=== PATIENT | female | born 1975 | race Caucasian/White ===

== ENCOUNTER 2017-01-31 18:00 | Inpatient (IN) | payer OTHER ==
--- NOTE | 2017-01-31 18:34 | PDOC ---
History of Present Illness - General Chief Complaint: Pain Stated Complaint: ABDOMINAL PAIN Time Seen by Provider: 01/31/17 18:34 - History of Present Illness Initial Comments: 41 year old female with PMH of GERD and history of tubal ligation presenting with nausea, vomiting, and diffuse abdominal and bilateral lower back pain for the past 5 hours. She denies any previous history of abdominal pain like this. The vomit was dark brown, non-bloody and did not look like coffee grounds. Has not had any urinary symptoms. Denies fevers, chills, chest pain, palpitations, or any other sick symptoms. 01/31/17 19:16 Past History - Past Medical History Allergies/Adverse Reactions: Allergies Allergy/AdvReac Type Severity Reaction Status Date / Time No Known Allergies Allergy Verified 01/31/17 18:22 Home Medications: Ambulatory Orders Docusate Sodium [Colace -] 100 mg PO TID #90 capsule 02/01/17 Oxycodone HCl/Acetaminophen [Percocet 5-325 mg Tablet] 1 - 2 tab PO Q6H #28 tab MDD 4 02/01/17 Thyroid Disease: No - Suicide/Smoking/Psychosocial Hx Smoking History: Never smoked Have you smoked in the past 12 months: No Information on smoking cessation initiated: No Hx Alcohol Use: No Drug/Substance Use Hx: No Substance Use Type: None Review of Systems - Review of Systems Constitutional: No: Chills, Diaphoresis, Fever Respiratory: No: Cough, Shortness of Breath, Wheezing Cardiac (ROS): Yes: Chest Pain. No: Edema, Lightheadedness *Physical Exam - Vital Signs Last Vital Signs Temp Pulse Resp BP Pulse Ox 98.6 F 75 18 130/74 100 01/31/17 18:00 01/31/17 18:00 01/31/17 18:00 01/31/17 18:00 01/31/17 18:00 - Physical Exam General Appearance: Yes: Nourished, Appropriately Dressed. No: Apparent Distress HEENT: positive: EOMI, MANJEET, Normal ENT Inspection Neck: positive: Trachea midline, Normal Thyroid, Supple. negative: Tender, Rigid Respiratory/Chest: positive: Lungs Clear, Normal Breath Sounds. negative: Chest Tender, Respiratory Distress Cardiovascular: positive: Regular Rhythm, Regular Rate. negative: S1, S2, Edema , Murmur Gastrointestinal/Abdominal: positive: Normal Bowel Sounds, Tender (Originally tender diffusely in abdomen but localized to lower abdomen/ suprapubic area after two hours.), Flat, Soft Musculoskeletal: positive: Normal Inspection Extremity: positive: Normal Inspection, Normal Range of Motion Integumentary: positive: Normal Color, Dry, Warm Neurologic: positive: Fully Oriented, Alert, Normal Mood/Affect ED Treatment Course - LABORATORY CBC & Chemistry Diagram: 01/31/17 19:51 01/31/17 19:51 Medical Decision Making - Medical Decision Making 41 year old female who presents with abdominal pain, nausea, and vomiting. Pain was eventually localized to suprapubic region although UA negative. Will get CT abdomen with PO contrast because of elevated WBC with left shift. Signed out to Dr. Nicholas in stable condition. 01/31/17 22:57 *DC/Admit/Observation/Transfer Diagnosis at time of Disposition: Abdominal pain - Discharge Dispostion Condition at time of disposition: Stable - Prescriptions
[2017-01-31 20:11] LABS: BASOPHIL 0.2 % (0-2.0); MCH 32.4 pg (25.7-33.7); MCHC 33.4 g/dl (32.0-36.0); MEAN CELL VOLUME 96.8 fl (80-96); MEAN PLT VOLUME 8.7 fl (7.5-11.1); NEUTROPHILS 90.4 % (42.8-82.8); PLATELET COUNT 258 K/MM3 (134-434); RDW 12.7 % (11.6-15.6); WHITE BLOOD COUNT 17.7 K/mm3 (4.0-10.0)
[2017-01-31 20:21] LABS: URINE APPEARANCE SLCLOUDY; URINE BILIRUBIN NEGATIVE (NEGATIVE); URINE BLOOD NEGATIVE (NEGATIVE); URINE COLOR LTYELLOW; URINE GLUCOSE (UA) NEGATIVE (NEGATIVE); URINE KETONE 1+ (NEGATIVE); URINE LEUK ESTERASE NEGATIVE (NEGATIVE); URINE NITRITE NEGATIVE (NEGATIVE); URINE PROTEIN NEGATIVE (NEGATIVE); URINE UROBILINOGEN NEGATIVE mg/dL (0.2-1.0)
[2017-01-31 20:38] LABS: ANION GAP 6 (8-16); CALCIUM 9.2 mg/dL (8.5-10.1); CO2 25 mmol/L (21-32); CREATININE 0.7 mg/dL (0.55-1.02); GLUCOSE,RANDOM 129 mg/dL (74-106); MAGNESIUM 1.6 mg/dL (1.8-2.4); PHOSPHOROUS 1.6 mg/dL (2.5-4.9); SGOT/AST 14 U/L (15-37); SGPT/ALT 22 U/L (12-78)
[2017-01-31 20:40] LABS: ALK PHOS 79 U/L (45-117); BILIRUBIN,TOTAL 0.3 mg/dL (0.2-1.0); TOT PROT 7.4 g/dl (6.4-8.2)
[2017-01-31] MEDS ORDERED: MAGNESIUM SULF 50% (8.12 MEQ/2 ML-1 GM VIAL) IVPB ONE (22:36)
[2017-01-31] MEDS ORDERED: MAGNESIUM SULF 50% (8.12 MEQ/2 ML-1 GM VIAL) ONE (22:48)
--- NOTE | 2017-02-01 01:00 | PDOC ---
Attending Attestation - Resident Resident Name: Mark Cortes - HPI HPI: 02/01/17 00:58 41-year-old female with history of GERD presents to the ER with atraumatic lower abdominal pain and anorexia. - Physicial Exam PE: 02/01/17 00:58 Patient is awake and alert, nontoxic-appearing, afebrile cta rrr Abdomen: Soft, nondistended, mild to moderate suprapubic and left lower quadrant tenderness to deep palpation; no guarding or rebound; no CVA tenderness ; - Medical Decision Making 02/01/17 00:59 41-year-old female with history of GERD presents to the ER with atraumatic lower abdominal pain. Pain is localized to the suprapubic and left lower quadrant areas. CBC reveals significant leukocytosis of 17 with predominance of neutrophils. CMP is within normal limit. Urinalysis unremarkable. Will obtain CT of abdomen and pelvis with by mouth contrast to rule out diverticulitis. Will reassess. 02/01/17 02:35 Patient with persistent periumbilical and right lower quadrant pain. Leukocytosis of 17. CT that and pelvis showing a dilated appendix of 8 mm. I suspect early appendicitis. Will administer IV Zosyn, we'll keep nothing by mouth, will hydrate, we'll consult surgery.
[2017-02-01] MEDS ORDERED: PIPERACILLIN/TAZOB 3.375 GM/50 ML PRE-DOCKED IV ONE (02:36)
[2017-02-01] MEDS ORDERED: DEXTROSE 5%-0.45% SALINE 1,000 ML IV SCH (02:45)
[2017-02-01] MEDS ORDERED: PIPERACILLIN/TAZOB 3.375 GM 50 ML IVPB ONE (03:14)
--- NOTE | 2017-02-01 05:47 | PDOC ---
*Physical Exam - Vital Signs Last Vital Signs Temp Pulse Resp BP Pulse Ox 98.6 F 75 18 130/74 100 01/31/17 18:00 01/31/17 18:00 01/31/17 18:00 01/31/17 18:00 01/31/17 18:00 ED Treatment Course - LABORATORY CBC & Chemistry Diagram: 01/31/17 19:51 01/31/17 19:51 - ADDITIONAL ORDERS Additional order review: Laboratory Results 01/31/17 01/31/17 01/31/17 20:06 19:52 19:51 Sodium 136 Potassium 4.0 Chloride 105 Carbon Dioxide 25 Anion Gap 6 L BUN 8 Creatinine 0.7 Creat Clearance w eGFR > 60 Random Glucose 129 H Calcium 9.2 Phosphorus 1.6 L Magnesium 1.6 L Total Bilirubin 0.3 AST 14 L ALT 22 Alkaline Phosphatase 79 Total Protein 7.4 Albumin 4.0 Lipase 100 Serum , Qual Negative Urine Color Ltyellow Urine Appearance Slcloudy Urine pH 6.0 Ur Specific [place] 1.020 Urine Protein Negative Urine Glucose (UA) Negative Urine Ketones 1+ H Urine Blood Negative Urine Nitrite Negative Urine Bilirubin Negative Urine Urobilinogen Negative 01/31/17 19:51 RBC 4.16 MCV 96.8 H MCHC 33.4 RDW 12.7 MPV 8.7 Neutrophils % 90.4 H Lymphocytes % 5.3 L Monocytes % 4.1 Eosinophils % 0.0 Basophils % 0.2 - Medications Given in the ED: ED Medications Discontinued Medications Generic Name Dose Route Start Last Admin Trade Name Freq PRN Reason Stop Dose Admin Magnesium Sulfate 2 gm 01/31/17 22:36 01/31/17 22:54 Magnesium Sulfate IVPB 01/31/17 22:37 2 gm ONCE ONE Administration Piperacillin Sod/Tazobactam Sod 3.375 gm 02/01/17 02:36 02/01/17 03:26 Zosyn 3.375gm Ivpb (Pre-Docked) IV 02/01/17 02:37 3.375 gm ONCE ONE Administration Protocol *DC/Admit/Observation/Transfer Diagnosis at time of Disposition: Abdominal pain - Discharge Dispostion Condition at time of disposition: Stable Admit: Yes
[2017-02-01] MEDS ORDERED: ONDANSETRON 4 MG/2 ML VIAL IVPUSH STA (05:56)
[2017-02-01] MEDS ORDERED: morphine CARPU-JECT 2 MG/1 ML DISP.SYRIN IVPUSH ONE (05:56)
[2017-02-01] MEDS ORDERED: morphine CARPU-JECT 4 MG/1 ML DISP.SYRIN ONE (06:14)
[2017-02-01] MEDS ORDERED: ONDANSETRON 4 MG/2 ML VIAL ONE (06:15)
[2017-02-01] MEDS ORDERED: morphine CARPU-JECT 2 MG/1 ML DISP.SYRIN IVPUSH PRN (06:54)
[2017-02-01 08:13] VITALS: BMI 29.9
--- NOTE | 2017-02-01 08:22 | HP ---
CHIEF COMPLAINT: Abdominal pain x1 PCP: Surgeon: Dr Santiago HISTORY OF PRESENT ILLNESS: The patient is a 41 year old female with no significant past medical history that presented yesterday with a one day history of lower abdominal pain. Patient was in her usual state of health until 2pm yesterday after a meal when she had a sharp lower abdominal pain. The pain was 10/10 located in the right lower quadrant and suprapubic area. The pain did not radiate. It was worsened by standing up and relieved by morphine which she received after she arrived 3 hours later in the ED. There was associated nausea with vomiting x1 of yellowish substance, no hematemesis. Patient had one bowel movement prior to the onset of the pain which was well formed stool, non bloody. No previous surgical history. No anorexia, no abdominal swelling, no hx of jaundice, or recent travel. No contact with someone with similar symptoms.There was no prior history of fever or chills. No dysuria, no increased in urinary frequency, no diarrhea or constipation. No headaches. While at the ED she received morphine and the pain is now at 6/10 in the R lower quadrant that she describes nore as a fullness. She is NPO and is scheduled to be reviewed by the Surgeon for appendectomy. ER course was notable for: (1)CTA -Showed a dilated appendix of 8mm (2)Leucocytosis-17.7 (3)UA -ketones 4) CXR- 5) EKG-Sinus tachycardia, non specific T wave abnormality 6) Zosyn ^) D5/and 1/2Nsaline, morphine, zofran Recent Travel: PAST MEDICAL HISTORY: None noted PAST SURGICAL HISTORY: None noted Social History: Smoking: Alcohol: Drugs: Family History: Lives with and 2 kids Allergies No Known Allergies Allergy (Verified 01/31/17 18:22) HOME MEDICATIONS: Home Medications Medication Instructions Recorded NK [No Known Home Medication] 01/31/17 REVIEW OF SYSTEMS CONSTITUTIONAL: Absent: fever, chills, diaphoresis, generalized weakness, malaise, loss of appetite, weight change HEENT: Absent: rhinorrhea, nasal congestion, throat pain, throat swelling, difficulty swallowing, mouth swelling, ear pain, eye pain, visual changes CARDIOVASCULAR: Absent: chest pain, syncope, palpitations, irregular heart rate, lightheadedness , peripheral edema RESPIRATORY: Absent: cough, shortness of breath, dyspnea with exertion, orthopnea, wheezing, stridor, hemoptysis GASTROINTESTINAL: suprapubic and RLQ abdominal pain+, nausea+, vomiting+, feeling of abdominal distension, but no distension, Absent: diarrhea, constipation, melena, hematochezia GENITOURINARY: Absent: dysuria, frequency, urgency, hesitancy, hematuria, flank pain, genital pain MUSCULOSKELETAL: Absent: myalgia, arthralgia, joint swelling, back pain, neck pain SKIN: Absent: rash, itching, pallor HEMATOLOGIC/IMMUNOLOGIC: Absent: easy bleeding, easy bruising, lymphadenopathy, frequent infections ENDOCRINE: Absent: unexplained weight gain, unexplained weight loss, heat intolerance, cold intolerance NEUROLOGIC: Absent: headache, focal weakness or paresthesias, dizziness, unsteady gait, seizure, mental status changes, bladder or bowel incontinence PSYCHIATRIC: Absent: anxiety, depression, suicidal or homicidal ideation, hallucinations. PHYSICAL EXAMINATION Vital Signs - 24 hr 02/01/17 02/01/17 06:12 07:41 Temperature 99.1 F Pulse Rate [ 119 H Apical] Pulse Rate [ 110 H Left Radial] Respiratory 20 20 Rate Blood Pressure 135/78 [Left Arm] O2 Sat by Pulse 97 100 Oximetry (%) GENERAL: Obese, Awake, alert, and fully oriented, in no acute distress. HEAD: Normal with no signs of trauma. EYES: Pupils equal, round and reactive to light, extraocular movements intact, sclera anicteric, conjunctiva clear, not pale. EARS, NOSE, THROAT: Ears normal, nares patent, oropharynx clear without exudates. Moist mucous membranes. NECK: Normal range of motion, supple without lymphadenopathy, JVD, or masses. LUNGS: Breath sounds equal, clear to auscultation bilaterally. No wheezes, and no crackles. No accessory muscle use. HEART: Regular rate and rhythm,tachycardic, normal S1 and S2 with murmur. ABDOMEN: Soft, not distended, normoactive bowel sounds, tender suprapubic and R hypochondrial region with positive McBurney's point tenderness. Rebound tenderness+, Rovsings+, obturator sign+. No guarding, no , no masses. No hepatomegaly or splenomegaly. SHARDA: No palpable masses gloved finger clean, no stool palpated. MUSCULOSKELETAL: Normal range of motion at all joints. No bony deformities or tenderness. No CVA tenderness. UPPER EXTREMITIES: 2+ pulses, warm, well-perfused. No cyanosis. No clubbing. No peripheral edema. LOWER EXTREMITIES: 2+ pulses, warm, well-perfused. No calf tenderness. No peripheral edema. NEUROLOGICAL: Cranial nerves II-XII intact. Normal speech. Normal gait. PSYCHIATRIC: Cooperative. Good eye contact. Appropriate mood and affect. SKIN: Warm, dry, normal turgor, no rashes or lesions noted, normal capillary refill. ASSESSMENT/PLAN: 41 year old female with no significant PMHx that presented with a one day history of lower abdominal pain found to have acute appendicitis # Acute appendicitis PT/INR, PTT NPO IV Fluids Morphine Zofran LFTs CBC UA BMP CT abdomen w/contrast_ reviewed Surgical consult- Dr Santiago on board For appendectomy #Hypophosphatemia Replete Repeat BMP #Hypomagnesemia Replete Repeat BMP #FEN: D5/1/Nsaline Replete as needed NPO for now #Prophylaxis DVT _heparin- post surgery [id number] surgery #Dispo Admit Visit type - Emergency Visit Emergency Visit: Yes ED Registration Date: 02/01/17 Care time: The patient presented to the Emergency Department on the above date and was hospitalized for further evaluation of their emergent condition. - New Patient This patient is new to me today: Yes Date on this admission: 02/01/17 - Critical Care Critical Care patient: No
--- NOTE | 2017-02-01 08:52 | HP ---
CHIEF COMPLAINT: Abd pain PCP: Non-staff Surgery: Dr. Santiago HISTORY OF PRESENT ILLNESS: Briefly, 41 yo F w/ no significant medical history c/o lower abd pain x 1 day. Pain started unannounced yesterday shortly after lunch, located in lower quadrants, stabbing, non-radiating, 10/10, constant, relieved with morphine and aggravated with positional change, a/w possible bilious n/v x 1 episode. Denies chest pain, sob, diarrhea, constipation, fever, chill, dysuria, dizziness. ER course was notable for: (1) Received morphine for pain, zofran for n/v, and zosyn for prophylatic abx (2) Tachycardic. Hypotensive x 1 episode (3) CT abd showed dilated appendix of 8 mm Recent Travel: Denies PAST MEDICAL HISTORY: None PAST SURGICAL HISTORY: None Social History: Smoking: Denies Alcohol: Denies Drugs: Denies Family History: Non-contributory Allergies No Known Allergies Allergy (Verified 01/31/17 18:22) HOME MEDICATIONS: Medication Instructions Recorded NK [No Known Home Medication] 01/31/17 REVIEW OF SYSTEMS CONSTITUTIONAL: Absent: fever, chills, diaphoresis, generalized weakness, malaise, loss of appetite, weight change HEENT: Absent: rhinorrhea, nasal congestion, throat pain, throat swelling, difficulty swallowing, mouth swelling, ear pain, eye pain, visual changes CARDIOVASCULAR: Absent: chest pain, syncope, palpitations, irregular heart rate, lightheadedness , peripheral edema RESPIRATORY: Absent: cough, shortness of breath, dyspnea with exertion, orthopnea, wheezing, stridor, hemoptysis GASTROINTESTINAL:abdominal pain Absent: , abdominal distension, nausea, vomiting, diarrhea, constipation, melena , hematochezia GENITOURINARY: Absent: dysuria, frequency, urgency, hesitancy, hematuria, flank pain, genital pain MUSCULOSKELETAL: Absent: myalgia, arthralgia, joint swelling, back pain, neck pain SKIN: Absent: rash, itching, pallor HEMATOLOGIC/IMMUNOLOGIC: Absent: easy bleeding, easy bruising, lymphadenopathy, frequent infections ENDOCRINE: Absent: unexplained weight gain, unexplained weight loss, heat intolerance, cold intolerance NEUROLOGIC: Absent: headache, focal weakness or paresthesias, dizziness, unsteady gait, seizure, mental status changes, bladder or bowel incontinence PSYCHIATRIC: Absent: anxiety, depression, suicidal or homicidal ideation, hallucinations. PHYSICAL EXAMINATION Last Vital Signs Temp Pulse Resp BP Pulse Ox 98.2 F 104 H 18 98/59 96 02/01/17 08:05 02/01/17 08:05 02/01/17 08:05 02/01/17 08:05 02/01/17 08:18 GENERAL: AAO x 3, able to converse in full sentences (only Faroese), appropriate to stated age, in no obvious pain or cardiopulmonary acute distress. LUNGS: CTAB HEART: Tachycardic, regular rthym, S1 and S2 present no murmur ABDOMEN: Soft, periumbilical tenderness, not distended, normoactive bowel sounds , no guarding, +rebound. + psoas sign, +rovsing sign EXTREMITIES: No peripheral edema. SKIN: no rashes or lesions noted IMAGING CXR on 02/01: no acute pathology (my read) CT on 02/01: dilated appendix 8mm (night hawk) EKG 02/01: tachycardic 104bpm non-specific change ASSESSMENT/PLAN: 41 yo F admitted to med-surg for acute appendicitis. Sepsis 2/2 Acute Appendicitis - Clinically stable - Surgery onboard and scheduled - Pain control with morphine - Zosyn x 1 dose in ED - Start ceftriaxone + flagyl - Cont. hydration FEN - Cont. D5W+1/2NS@125cc/hr - HypoMg2+, repleted, cont. to monitor - NPO Prophylaxis - DVT: SCDs - GI: NPO Dispo - Surgery planned this AM Junior Mazariegos Medicine PGY2 Pager: [phone] Visit type - Emergency Visit Emergency Visit: Yes ED Registration Date: 02/01/17 Care time: The patient presented to the Emergency Department on the above date and was hospitalized for further evaluation of their emergent condition. - New Patient This patient is new to me today: Yes Date on this admission: 02/01/17 - Critical Care Critical Care patient: No
[2017-02-01] MEDS ORDERED: FLU VACCINE QUAD 60 MCG/0.5 ML (MDV 17-18) IM ONE (10:00)
--- NOTE | 2017-02-01 10:24 | EKG ---
Test Reason : Blood Pressure : / mmHG Vent. Rate : 106 BPM Atrial Rate : 106 BPM P-R Int : 146 ms QRS Dur : 084 ms QT Int : 348 ms P-R-T Axes : 061 048 006 degrees QTc Int : 462 ms SINUS TACHYCARDIA NONSPECIFIC T WAVE ABNORMALITY ABNORMAL ECG NO PREVIOUS ECGS AVAILABLE Confirmed by RICH RESTREPO MD ([id number]) on 02/01/2017 10:24:27 AM Referred By: Confirmed By:RICH RESTREPO MD
[2017-02-01] MEDS ORDERED: morphine CARPU-JECT 4 MG/1 ML DISP.SYRIN IVPUSH PRN ×2 (11:15→15:50)
[2017-02-01] MEDS ORDERED: DEXTROSE 5%-NORMAL SALINE 1,000 ML IV SCH ×2 (11:30→15:50)
[2017-02-01] MEDS ORDERED: METRONIDAZOLE 500 MG PREMIXED 100 ML IVPB SCH (11:30)
[2017-02-01] MEDS ORDERED: CEFTRIAXONE 2 GM in DEXTROSE 5%-WATER - 50 ML IVPB SCH (11:30)
[2017-02-01] MEDS ORDERED: SODIUM PHOSPHATE - 30 MM in SODIUM CHLORIDE 250 ML IVPB ONE (12:00)
[2017-02-01] MEDS ORDERED: DEXTROSE 5%-WATER - 50 ML IVPB ONE (12:00)
--- NOTE | 2017-02-01 13:02 | PN ---
Teaching Attending Note Name of Resident: Luisa Bragg ATTENDING PHYSICIAN STATEMENT I saw and evaluated the patient. I reviewed the resident's note and discussed the case with the resident. I agree with the resident's findings and plan as documented. SUBJECTIVE: CC; Abd pain. HPI: developed sudden onset ABd pain yesterday, that progressed in severity and located in RLQ . denied any diarrhea or fever . hd nausea and vomited yesterday . in ER she was to have sepsis , and enlarged appendix on CT scan, and was given Abx. OBJECTIVE: VS reviewed. NAD MMM, no facial droop, round equal pupils, reactive tolight . no JVD CV: RRR, no MRG Lungs: CTAB Abd : soft, hypoactive BS , ND . TTP in RLQ, and suprapubic area. + Mcberny , Rofsing, and PSoas signs , Neg Obterator sign . Ext: no edema or erythema ASSESSMENT AND PLAN: 41 y/o lady with h/o GERD who presented with abd pain and was found to have acute appendicitis 1- Sepsis, secondary to acute appendicitis ( typical physical exam, and enlarged on CT scan , despite no stranding on imaging ) . - IVF - start Ceftriaxone and flagyl. AFter sx decision of BAx depends on findings - NPO - Seen by Sx , for OR today. - blood cx . - Iv morphine 2- Hypophosphatemia and hypomagnesemia . replete electrolytes 3- DVT pX possible dc tomorrow
[2017-02-01] MEDS ORDERED: oxyCODONE HCL 5 MG TABLET PO PRN ×5 (14:03→15:50)
[2017-02-01] MEDS ORDERED: MIDAZOLAM HCL 2 MG/2 ML SINGLE DOSE VIAL ONE (14:12)
[2017-02-01] MEDS ORDERED: PROPOFOL 20 ML ONE ×2 (14:12)
[2017-02-01] MEDS ORDERED: LIDOCAINE HCL/PF 2% SDV 5ML VIAL ONE (14:12)
[2017-02-01] MEDS ORDERED: ROCURONIUM BROMIDE 50 MG/5 ML VIAL ONE (14:13)
[2017-02-01] MEDS ORDERED: LACTATED RINGERS SOLUTION 1,000 ML IV SCH ×2 (14:15→15:45)
[2017-02-01] MEDS ORDERED: NEOSTIGMINE METHYLSULFATE 0.5 MG/ML - 10 ML MDV ONE (15:08)
[2017-02-01] MEDS ORDERED: BUPIVACAINE HCL/PF 0.5% (5MG/ML) 10 ML VIAL IJ ONE (15:18)
--- NOTE | 2017-02-01 15:26 | CONSULT ---
Consult Consult Specialty:: Surgery Reason for Consultation:: Abdominal pain - History of Present Illness History of Present Illness: 41 female presents for RLQ pain x 1 day 1st episode No nausea/vomiting No diarrhea - History Source History Provided By: Patient, Medical Record - Past Medical History ...LMP: 12/19/16 ...: No - Alcohol/Substance Use Hx Alcohol Use: No - Smoking History Smoking history: Never smoked Have you smoked in the past 12 months: No Home Medications - Allergies Allergies/Adverse Reactions: Allergies Allergy/AdvReac Type Severity Reaction Status Date / Time No Known Allergies Allergy Verified 01/31/17 18:22 - Home Medications Home Medications: Ambulatory Orders NK [No Known Home Medication] 01/31/17 Family Disease History - Family Disease History Family History: Unremarkable Review of Systems - Review of Systems Constitutional: denies: Chills, Fever HENT: reports: No Symptoms Neck: reports: No Symptoms Cardiovascular: denies: Chest Pain Respiratory: denies: Cough Gastrointestinal: reports: Abdominal Pain. denies: Diarrhea, Nausea Neurological: denies: Change in LOC Pain Intensity: 4 Physical Exam Vital Signs: Vital Signs Temperature 98.6 F 02/01/17 14:12 Pulse Rate 99 H 02/01/17 14:12 Respiratory Rate 18 02/01/17 14:12 Blood Pressure 114/69 02/01/17 14:12 O2 Sat by Pulse Oximetry (%) 96 02/01/17 09:00 Constitutional: Yes: Calm HENT: Yes: WNL Neck: Yes: Supple Cardiovascular: Yes: Regular Rate and Rhythm Respiratory: Yes: CTA Bilaterally Gastrointestinal: Yes: Soft, Tenderness (RLQ). No: Tenderness, Rebound Extremities: Yes: WNL Neurological: Yes: Alert, Oriented Labs: CBC, BMP 01/31/17 19:51 01/31/17 19:51 Imaging - Results Cat Scan: Report Reviewed, Image Reviewed Problem List - Problems (1) Acute appendicitis Code(s): K35.80 - UNSPECIFIED ACUTE APPENDICITIS Qualifiers: Acute appendicitis type: with localized peritonitis Qualified Code(s ): K35.3 - Acute appendicitis with localized peritonitis Assessment/Plan 41 female with acute appendicitis NPO IV fluids Antibiotics For laparoscopic possible open appendectomy
--- NOTE | 2017-02-01 15:27 | OP ---
Operative Note - Note: Operative Date: 02/01/17 Pre-Operative Diagnosis: Acute appendicitis Operation: Laparoscopic appendectomy Post-Operative Diagnosis: Same as Pre-op Surgeon: Andry Santiago Plant Control Aide: Divya Kohler Anesthesia: General Specimens Removed: Appendix Estimated Blood Loss (mls): 5 Operative Report Dictated: Yes
[2017-02-01] MEDS ORDERED: ONDANSETRON 4 MG/2 ML VIAL IVPB PRN ×2 (15:30→15:50)
[2017-02-01] MEDS ORDERED: ONDANSETRON 4 MG/2 ML VIAL IVPUSH PRN (15:40)
--- NOTE | 2017-02-01 15:42 | SURG ---
Surgery Customer Account Representative Note Customer Account Representative: Divya Kohler PA-C Date of Service: 02/01/17 Diagnosis: Acute appendicitis Procedure: Laparoscopic appendectomy, umbilical hernia repair I was present for the entirety of the operative procedure. For further detail, please refer to operative report. Visit type - Case Type Case Type: ED Admission - Emergency Emergency Visit: Yes ED Registration Date: 02/01/17 Care time: The patient presented to the Emergency Department on the above date and was hospitalized for further evaluation of their emergent condition. - New patient This patient is new to me today: Yes Date on this admission: 02/01/17 - Critical Care Critical Care patient: No
[2017-02-01] MEDS ORDERED: HYDROmorphone HCL CARPU-JECT 2 MG/1 ML DISP.SYRIN ONE (16:00)
[2017-02-01] MEDS: HYDROmorphone HCL CARPU-JECT 1 MG/1 ML DISP.SYRIN IVPUSH PRN ×4 (16:00→16:30)
--- NOTE | 2017-02-01 16:40 | SPEC ---
DATE OF OPERATION: 02/01/2017 SURGEON: Gareth Santiago M.D. MOTORCYCLE BUILDER: Irma Robertson PREOPERATIVE DIAGNOSIS: Acute appendicitis. POSTOPERATIVE DIAGNOSIS: Acute appendicitis and umbilical hernia. PROCEDURE: Laparoscopic appendectomy, umbilical hernia repair. SPECIMENS: Appendix. ESTIMATED BLOOD LOSS: 5 mL. DRAINS: None. ANESTHESIA: GT. REASON FOR THE PROCEDURE: This is a 41-year-old female who presents to the hospital with right lower quadrant pain and was found to have an elevated white blood cell count and evidence of acute appendicitis on CT findings. Because of this, she was consented for a laparoscopic, possible open appendectomy. RISKS AND BENEFITS: The risks and benefits were explained for a laparoscopic, possible open appendectomy. These included bleeding, infection, hernia, VA, DVT, PE, injury to surrounding structures including the liver, colon, bowel, bladder, ureter, vessel injury, nerve injury, abscess formation, staple line leak, staple line dehiscence as some of the possible complications. The patient understood and signed informed consent. DESCRIPTION OF PROCEDURE: The patient was placed supine on the operating room table. The patient underwent general endotracheal intubation. A Crowell catheter was inserted by the nursing staff. The abdomen was prepped and draped in the usual sterile fashion. A timeout was performed. A periumbilical incision was made and a 5-mm optical trocar was inserted under direct visualization with the laparoscope. Pneumoperitoneum was then established. Subsequently, a 5-mm trocar was placed in the suprapubic area and a 12-mm trocar placed in the left lower quadrant. The patient was placed in Trendelenburg right side up position. After meticulous dissection, the appendix was identified. The appendix was freed from its surrounding structures and the appendix was retracted to the anterior abdominal wall. The base of the appendix was identified. A window was created within the mesentery near the base of the appendix. The appendix at its base was stapled using a laparoscopic Endo-DEEPTI stapler with a white load. The mesoappendix was then transected using a laparoscopic Endo-DEEPTI stapler with a white load. The appendix was placed in an EndoCatch bag. Inspection of both staple lines was identified. The staple line at the base of the appendix was noted to be fully intact. Hemostasis was noted at the staple line of the mesoappendix. Copious irrigation and suction was performed. The appendix was removed from the abdominal cavity and sent off the operative field as specimen. The patient was then placed in left side up position. The 12-mm trocar was removed. The fascia at this site was closed using a 0 Vicryl suture with a Justin-Marvin device. The patient was then placed supine. Pneumoperitoneum was desufflated and all further trocars were removed. All incision sites were irrigated and Marcaine was injected at all incision sites. The fascial suture was secured. All incision sites were closed using 4-0 Biosyn. Sterile dressings were applied. The patient tolerated the procedure well. The Crowell catheter was removed and the patient was transferred to the recovery room in stable condition. In addition, at the beginning of the case, she was noted to have an umbilical hernia. This was used for the initial trocar insertion. At the end of the case, the umbilical hernia was repaired with a Justin Marvin device with a 0 Vicryl suture. Patient tolerated procedure well and was transferred to recovery room in stable condition. GARETH SANTIAGO M.D. [id number]
[2017-02-01] MEDS ORDERED: METRONIDAZOLE 500 MG PREMIXED 100 ML IVPB ONE (17:18)
[2017-02-01] MEDS: METRONIDAZOLE 500 MG PREMIXED 100 ML IVPB SCH (17:25)
[2017-02-01] MEDS: HEPARIN NA (PORCINE) 5,000 UNITS/ML 1ML VIAL SQ SCH (21:06)
[2017-02-02] MEDS: METRONIDAZOLE 500 MG PREMIXED 100 ML IVPB SCH ×2 (01:16→09:05)
[2017-02-02] MEDS: HEPARIN NA (PORCINE) 5,000 UNITS/ML 1ML VIAL SQ SCH ×2 (06:42→15:02)
[2017-02-02 07:37] LABS: BASOPHIL 0.1 % (0-2.0); MCH 32.7 pg (25.7-33.7); MCHC 33.5 g/dl (32.0-36.0); MEAN CELL VOLUME 97.7 fl (80-96); MEAN PLT VOLUME 8.9 fl (7.5-11.1); NEUTROPHILS 78.2 % (42.8-82.8); PLATELET COUNT 214 K/MM3 (134-434)
[2017-02-02 07:51] LABS: ANION GAP 7 (8-16); CALCIUM 8.4 mg/dL (8.5-10.1); CO2 26 mmol/L (21-32); CREATININE 0.5 mg/dL (0.55-1.02); GLUCOSE,RANDOM 155 mg/dL (74-106); MAGNESIUM 2.2 mg/dL (1.8-2.4); PHOSPHOROUS 3.3 mg/dL (2.5-4.9)
[2017-02-02] MEDS ORDERED: DEXTROSE 5%-WATER - 50 ML IVPB ONE (09:02)
[2017-02-02] MEDS ORDERED: CEFTRIAXONE 2 GM in DEXTROSE 5%-WATER - 50 ML IVPB SCH (10:00)
--- NOTE | 2017-02-02 12:32 | PN ---
Progress Note (short form) - Note Progress Note: POD 1 Laparoscopic appendectomy Pain controlled On diet Vital Signs Period Temp Pulse Resp BP Sys/Rolle Pulse Ox Last 24 Hr 97.4 F-99.1 F 67-118 10-25 95-114/52-79 93-100 Abd soft CBC, BMP 02/02/17 06:00 02/02/17 06:00 Doing well Can discharge home Follow up in office in 2 weeks [phone] Problem List - Problems (1) Acute appendicitis Code(s): K35.80 - UNSPECIFIED ACUTE APPENDICITIS Qualifiers: Acute appendicitis type: with localized peritonitis Qualified Code(s ): K35.3 - Acute appendicitis with localized peritonitis
[2017-02-02] MEDS ORDERED: oxyCODONE HCL 5 MG TABLET PO PRN (12:53)
--- NOTE | 2017-02-02 14:33 | PN ---
Progress Note (short form) - Note Progress Note: Anesthesia POD#1 S/P Lap Appendectomy under GA Doing well,VSS,food is advanced,no N/V,pain is well controlled. No complications to anesthesia seen. Rukhsana Butt MD
--- NOTE | 2017-02-02 14:45 | HOSP ---
Subjective - Review of Symptoms Events since last encounter: Ms Lupe Bear was seen here between 01/31/17 and 02/02/2017. She has a medical condition that may require some time to recover. Physical Examination Vital Signs: Vital Signs Temperature 97.7 F 02/02/17 09:00 Pulse Rate 92 H 02/02/17 10:29 Respiratory Rate 18 02/02/17 09:00 Blood Pressure 97/52 02/02/17 09:00 O2 Sat by Pulse Oximetry (%) 93 L 02/02/17 10:29 Labs: CBC, BMP 02/02/17 06:00 02/02/17 06:00
--- NOTE | 2017-02-02 14:58 | PN ---
Teaching Attending Note Name of Resident: Luisa Bragg ATTENDING PHYSICIAN STATEMENT I saw and evaluated the patient. I reviewed the resident's note and discussed the case with the resident. I agree with the resident's findings and plan as documented. SUBJECTIVE: n o fever or chills. has no mild abd pain, no N/V . tolerated diet OBJECTIVE: VS reviewed. NAD MMM, no facial droop, round equal pupils CV: RRR, no MRG Lungs: CTAB Abd : soft, NL BS , ND . TTP in lower abd Ext: no edema or erythema ASSESSMENT AND PLAN: 41 y/o lady with h/o GERD who presented with abd pain and was found to have acute appendicitis 1- Sepsis, secondary to acute appendicitis s/p surgical resection - d/w Dr Holli Santiago , no need for ABx - f/u with sx - percocet for pain DC home today
[2017-02-02 15:09] VITALS: BP 107/64; PULSE 75; TEMP 97.6
--- NOTE | 2017-02-02 20:16 | DS ---
Physical Exam: SUBJECTIVE: Patient seen and examined No new complaint. Tolerating diet wants to go home. POD1 OBJECTIVE: Vital Signs Period Temp Pulse Resp BP Sys/Rolle Pulse Ox Last 24 Hr 97.6 F-98.4 F 67-92 18-20 97-107/52-64 93-98 PHYSICAL EXAM GENERAL: The patient is awake, alert, and fully oriented, in no acute distress. HEAD: Normal with no signs of trauma. EYES: PERRL, extraocular movements intact, sclera anicteric, conjunctiva clear. ENT: Ears normal, nares patent, oropharynx clear without exudates, moist mucous membranes. NECK: Trachea midline, full range of motion, supple. LUNGS: Breath sounds equal, clear to auscultation bilaterally, no wheezes, no crackles, no accessory muscle use. HEART: Regular rate and rhythm, S1, S2 without murmur, rub or gallop. ABDOMEN: Soft, nondistended, normoactive bowel sounds, surgical puncture wounds seen in umbilical, suprapubic and L hypochondria areas appropriately tender EXTREMITIES: 2+ pulses, warm, well-perfused, no edema. NEUROLOGICAL: Cranial nerves II through XII grossly intact. Normal speech, gait not observed. PSYCH: Normal mood, normal affect. SKIN: Warm, dry, normal turgor, no rashes or lesions noted. LABS Laboratory Results - last 24 hr 02/02/17 02/02/17 06:00 06:00 WBC 7.0 D RBC 3.64 Hgb 11.9 D Hct 35.5 MCV 97.7 H MCH 32.7 MCHC 33.5 RDW 13.0 Plt Count 214 MPV 8.9 Neutrophils % 78.2 Lymphocytes % 16.7 D Monocytes % 5.0 Eosinophils % 0.0 Basophils % 0.1 Sodium 138 Potassium 4.5 Chloride 105 Carbon Dioxide 26 Anion Gap 7 L BUN 6 L D Creatinine 0.5 L D Random Glucose 155 H D Calcium 8.4 L Phosphorus 3.3 D Magnesium 2.2 D HOSPITAL COURSE: Date of Admission:02/01/17 Date of Discharge: 02/02/17 41 y/o lady with h/o GERD who presented with abdominal pain and was found to have acute appendicitis Patient had Sepsis, secondary to acute appendicitis with WBC 17.7 and tachycardia of 104 at presentation. S/p surgical laparoscopic appendectomy. Patient received Ceftriaxone and Flagyl intraoperatively and had no need to continue post op. She was discharged on percocet for pain To follow up with Surgeon in 2 weeks and with her primary care doctor. Minutes to complete discharge: 43 Discharge Summary Reason For Visit: ABDOMINAL PAIN Current Active Problems Abdominal pain (Acute) Acute appendicitis (Acute) Acute onset sepsis (Acute) Leukocytosis (Acute) Condition: Improved - Instructions Diet, Activity, Other Instructions: [address] [facility] Andry Santiago M.D. [address] [place] [address],[address] [facility].. [address] [place] [address] Weight Loss & Surgery [facility] [address] [address] Robotic, Bariatric and General Surgery Postoperative Instructions for General Surgery Activity: Resume normal everyday activity as tolerated. You may walk and climb stairs without any limitation. We encourage you to walk as often as you can Do not lift anything more than 10 pounds for 8 weeks. At that time, you can return to full activity, including the gym, without limitation. Do not drive a motor vehicle while taking prescribes narcotic pain medication. Wound Care: If you have a bandage in place, leave it on for 3 days. At that time you may remove the outer bandage. If there are strips of tape on the skin after removing the outer bandage, leave them in place. They will fall off by themselves. Do not remove them. If there is clear glue on the skin after removing the outer bandage, leave it in place. Do not pick at it or peel it off. You may shower after taking the outer bandage off, 3 days after your surgery. For male groin hernia patients: you may notice a black and blue discoloration of your testicles. This is normal and should resolve over the next week or two. If this persists, please call the office. Diet: You may continue your regular diet at home. If you have a history of high blood pressure, you should be on a low sodium diet. If you have a history of Diabetes Mellitus, you should be on a diabetic/sugar controlled diet. If you had your gallbladder removed, you should be on a low cholesterol/low fat diet. Medications/Pain Management: You may resume previous medications unless told otherwise. You may take the prescribed narcotic pain medication as needed. If the narcotic medication is not needed for pain control, you may take Tylenol. Avoid all other pain medications including Advil, Ibuprofen, Motrin, Aspirin, Naprosyn, Aleve, Celebrex. Vomiting/Nausea: This may occur if you eat too fast, don't chew, or eat too much. Go back to fluids. If the vomiting or nausea persists, call the office. Constipation/Diarrhea: You may experience a change in bowel habits. Many things affect this, including taking pain medication. If either persist, call the office. Follow up: Call the office at [phone] for an appointment 2 weeks after your surgical procedure. Disposition: HOME - Home Medications Comprehensive Discharge Medication List: Ambulatory Orders Docusate Sodium [Colace -] 100 mg PO TID #90 capsule 02/01/17 Oxycodone HCl/Acetaminophen [Percocet 5-325 mg Tablet] 1 tab PO TID PRN #9 tablet MDD 3 tab 02/02/17 This patient is new to me today: No Emergency Visit: Yes ED Registration Date: 02/01/17 Care time: The patient presented to the Emergency Department on the above date and was hospitalized for further evaluation of their emergent condition. Critical Care patient: No - Discharge Referral Referred to [facility] Med P.C.: No
--- NOTE | 2017-02-02 20:27 | PN ---
Physical Exam: SUBJECTIVE: Patient seen and examined OBJECTIVE: Vital Signs Period Temp Pulse Resp BP Sys/Rolle Pulse Ox Last 24 Hr 97.6 F-98.4 F 67-92 18-20 97-107/52-64 93-98 GENERAL: The patient is awake, alert, and fully oriented, in no acute distress. HEAD: Normal with no signs of trauma. EYES: PERRL, extraocular movements intact, sclera anicteric, conjunctiva clear. No ptosis. ENT: Ears normal, nares patent, oropharynx clear without exudates, moist mucous membranes. NECK: Trachea midline, full range of motion, supple. LUNGS: Basal creps bilaterally ABDOMEN: Soft, obese, normoactive bowel sounds, no guarding, no rebound,CVA+ tenderness on L EXTREMITIES: Bilateral edema both lower limbs, with swollen knees NEUROLOGICAL: Cranial nerves II through XII grossly intact. Power 2/5 R lower limb PSYCH: Normal mood, normal affect. SKIN: Warm, dry, normal turgor, no rashes or lesions noted Laboratory Results - last 24 hr 02/02/17 02/02/17 06:00 06:00 WBC 7.0 D RBC 3.64 Hgb 11.9 D Hct 35.5 MCV 97.7 H MCH 32.7 MCHC 33.5 RDW 13.0 Plt Count 214 MPV 8.9 Neutrophils % 78.2 Lymphocytes % 16.7 D Monocytes % 5.0 Eosinophils % 0.0 Basophils % 0.1 Sodium 138 Potassium 4.5 Chloride 105 Carbon Dioxide 26 Anion Gap 7 L BUN 6 L D Creatinine 0.5 L D Random Glucose 155 H D Calcium 8.4 L Phosphorus 3.3 D Magnesium 2.2 D ASSESSMENT/PLAN: 87 y/o lady with h/o S/p TAVR, tricuspid regurgitation, Pulmonary hypertension, Atrial fibrillation, SSS, Chronic kidney disease, Anemia, Recurring UTIs, COPD and other medical problems who presented after syncopal episode. #Syncope : Likely due to orthostatic hypotension due to NG use , and some degree of volume depletion from UTI - cont to hold lasix , might resume tomorrow - check Ortho VS tomorrow am #pyelonephritis :likely on L side . Preliminary Urine culture grew lactose fermenting organism old urine cx reviewed. Klebsiella and proteus . - cont unasyn . # H/o D CHF : - cont to hold lasix , till am probably . although has crackles , there is no compromise of pulm function - cont BB # H/o A fib : cont toprol and coumadin # H /o recurrent C diff: cont home vanco 125 daily #HLD Atorvorstatin DVT PX : on coumadin WIll confirm home meds Visit type - Emergency Visit Emergency Visit: Yes ED Registration Date: 02/01/17 Care time: The patient presented to the Emergency Department on the above date and was hospitalized for further evaluation of their emergent condition. - New Patient This patient is new to me today: Yes Date on this admission: 02/02/17 - Critical Care Critical Care patient: No - Discharge Referral Referred to [facility] Med P.C.: No
--- NOTE | 2017-02-05 14:14 | PATH ---
Surgical Pathology Report Patient Name: MICHAEL JACINTO Med. Rec. #: [id number] /Age/Gender: 1975 (Age: 41) / F Account: [id number] Location: [facility] MED/SURG Taken: 02/01/2017 Received: 02/02/2017 Reported: 02/05/2017 Physicians: Andry Santiago M.D. Specimen(s) Received APPENDIX Clinical History Abdominal pain, acute appendicitis Final Diagnosis APPENDIX, APPENDECTOMY: ACUTE APPENDICITIS, AND FIBROUS OBLITERATION OF THE LUMEN. Electronically Signed Manav Jones M.D. Gross Description Received in formalin, labeled "appendix," is a 6 cm. in length vermiform appendix with a stapled margin of resection and moderate attached fat. The serosa is morillo-pearson and smooth. Sectioning reveals focally hemorrhagic lumen. The wall of the appendix averages 0.1 cm. in thickness. Gandy Dancer sections are submitted in one cassette. 02/02/2017 [facility]02/02/2017
== END 2017-02-02 15:40 | disposition home or self-care (01) | DRG 710 ==
LOC: JER 18:00 → JERBED 02-01 05:47 → J7W 02-01 07:58
PROVIDERS: ADMIT Internal Medicine; ATTEND Internal Medicine
PROC: 0WQF0ZZ Repair Abdominal Wall, Open Approach (ICD-10-PCS; 2017-02-01)
PROC: 0DTJ4ZZ Resection of Appendix, Percutaneous Endoscopic Approach (ICD-10-PCS; principal; 2017-02-01 19:00)
DX: A41.9 Sepsis, unspecified organism (principal); K35.80 Unspecified acute appendicitis; K21.9 Gastro-esophageal reflux disease without esophagitis; K42.9 Umbilical hernia without obstruction or gangrene; E83.42 Hypomagnesemia; E83.39 Other disorders of phosphorus metabolism; I95.1 Orthostatic hypotension; I50.32 Chronic diastolic (congestive) heart failure; I48.91 Unspecified atrial fibrillation; E78.5 Hyperlipidemia, unspecified; N12 Tubulo-interstitial nephritis, not specified as acute or chronic; B96.1 Klebsiella pneumoniae [K. pneumoniae] as the cause of diseases classified elsewhere; B96.5 Pseudomonas (aeruginosa) (mallei) (pseudomallei) as the cause of diseases classified elsewhere
CPT/HCPCS: 36415; 71020-TC; 74176-TC; 80048; 80053; 81003; 83690; 83735; 84100; 84703; 85025; 87040; 87086; 88304-TC; 93005; 93010; 94760; 99285-25; J1644

== ENCOUNTER 2020-03-03 13:00 | Emergency (ER) | payer OTHER ==
[2020-03-03 13:08] VITALS: BP 143/74; PULSE 72; TEMP 98.2; BMI 30.5
--- NOTE | 2020-03-03 13:08 | PDOC ---
Rapid Medical Evaluation Chief Complaint: Chest Pain Time Seen by Provider: 03/03/20 13:06 Medical Evaluation: Allergies Allergy/AdvReac Type Severity Reaction Status Date / Time No Known Allergies Allergy Verified 01/31/17 18:22 03/03/20 13:07 I have performed a brief in person evaluation of this patient. CC: midsternal chest pain x4 days with dizziness x2 weeks and intermittent SOB PE: No focal findings. Orders: Cardiac w/u Patient will proceed to ED for further evaluation. Discharge Disposition - Diagnosis Chest pain - Referrals - Patient Instructions - Post Discharge Activity
--- OUTSIDE RECORDS SUMMARY | 2020-03-03 13:21 | XMS ---
:1975 [facility] Care Team Providers Name Role Phone ED STAFF PHYSICIAN, STAFF Unavailable Unavailable ED STAFF PHYSICIANISAIAH Unavailable Unavailable Re-disclosure Warning The records that you are about to access may contain information from federally- assisted alcohol or drug abuse programs. If such information is present, then the following federally mandated warning applies: This information has been disclosed to you from records protected by federal confidentiality rules (42 CFR part 2). The federal rules prohibit you from making any further disclosure of this information unless further disclosure is expressly permitted by the written consent of the person to whom it pertains or as otherwise permitted by 42 CFR part 2. A general authorization for the release of medical or other information is NOT sufficient for this purpose. The Federal rules restrict any use of the information to criminally investigate or prosecute any alcohol or drug abuse patient.The records that you are about to access may contain highly sensitive health information, the redisclosure of which is protected by Article 27-F of the [place] State Public Health law. If you continue you may haveaccess to information: Regarding HIV / AIDS; Provided by facilities licensed or operated by the [facility] Office of Mental Health; or Provided by the [facility] Office for People With Developmental Disabilities. If such information is present, then the following [facility] mandated warning applies: This information has been disclosed to you from confidential records which are protected by state law. State law prohibits you from making any further disclosure of this information without the specific written consent of the person to whom it pertains, or as otherwise permitted by law. Any unauthorized further disclosure in violation of state law may result in a fine or fci sentence or both. A general authorization for the release of medical or other information is NOT sufficient authorization for further disclosure. Encounters Encounter Providers Location Date Indications Data Source(s ) Emergency Attender: ISAIAH ED H 05/15/2019 [place] STAFF 03:22:00 PM EST Medical C enter PHYSICIANAttender: - 05/15/2019 STAFF ED STAFF 11:19:00 PM EST PHYSICIANAdmitter: ISAIAH ED STAFF PHYSICIAN Patient discharged. Insurance Providers Payer name Policy type Policy ID Covered Covered constitution party's Policy P venita / Coverage constitution party ID relationship to [place] Inf ormation type puente TOLU [id number] SP [id number] ESSENTIAL PLAN 3 4 [employer] [id number] SP [id number] O MEDICAID [id number] SP [id number] MAGNACARE O [id number] 01 [id number] W [id number] [place] [facility] [id number] S [id number] Options Essential Plan 1 Superior [id number] S [id number] Vision Essential Plan 1 Dental [id number] S [id number] Healthplex Essental Plan 4 Medicaid [id number] S [id number] Regular Clinic Visit MVP Essential [id number] S [id number] O Plan 4 Problems, Conditions, and Diagnoses Code Display Name Description Problem Type Effective Dates Data Source(s) R10.9 Unspecified UNSPECIFIED Diagnosis 05/15/2019 [facility] s abdominal pain ABDOMINAL PAIN 03:22:00 PM EST [facility] N93.9 Abnormal uterine ABNORMAL UTERINE Diagnosis 05/15/2019 [facility] and vaginal AND VAGINAL 03:22:00 PM EST [facility] bleeding, BLEEDING, unspecified UNSPECIFIED D25.2 Subserosal SUBSEROSAL Diagnosis 05/15/2019 [facility] leiomyoma of LEIOMYOMA OF 03:22:00 PM EST [facility] uterus UTERUS R10.30 Lower abdominal LOWER ABDOMINAL Diagnosis 05/15/2019 Georgina Black pain, unspecified PAIN, UNSPECIFIED 03:22:00 PM [facility] Center Results ID Date Data Source HematologyRou.[id number] 05/15/2019 05:54:00 PM [facility] 0500 Name Value Range Interpretation Description Data Sup porting Code Source(s) Document(s ) Hemoglobin 12.3-16. <content [facility] [Mass/volume] in 0 styleCode="Bold [place] Blood ">Hemoglobin Medical </content>13.3 Center G/DL<content styleCode="Ital ics"> (12.3-16.0 G/DL)</content> Leukocytes 4.4-11.0 <content [facility] [#/volume] in styleCode="[facility] [place] Blood by ">White Blood Medical Automated count Cell Count Center </content>8.08 KCUMM<content styleCode="Ital ics"> (4.4-11.0 KCUMM)</content > Erythrocytes 4.0-5.1 <content Saint [#/volume] in styleCode="[facility] [place] Blood by ">Red Blood Medical Automated count Cell Count Center </content>4.17 MCUMM<content styleCode="Ital ics"> (4.0-5.1 MCUMM)</content > Erythrocyte mean 80.0-100 <content [facility] corpuscular .0 styleCode="[facility]old [place] volume [Entitic ">Mean Medical volume] by Corpuscular Center Automated count Volume </content>96.4 FL<content styleCode="Ital ics"> (80.0-100.0 FL)</content> Hematocrit 36.0-46. <content [facility] [Volume 0 styleCode="[facility] [place] Fraction] of ">Hematocrit Medical Blood by </content>40.2 Center Automated count %<content styleCode="Ital ics"> (36.0-46.0 %)</content> Erythrocyte mean 32.0-37. <content [facility] corpuscular 0 styleCode="[facility] [place] hemoglobin ">Mean Corpus. Medical concentration Hgb Center [Mass/volume] by Concentration Automated count (MCHC) </content>33.1 G/DL<content styleCode="Ital ics"> (32.0-37.0 G/DL)</content> Erythrocyte mean 26.0-34. <content [facility] corpuscular 0 styleCode="[facility] [place] hemoglobin ">Mean Medical [Entitic mass] Corposcular Center by Automated Hemoglobin count </content>31.9 PG<content styleCode="Ital ics"> (26.0-34.0 PG)</content> UNK 0 <content Saint styleCode="[facility] [place] ">Nucleated Red Medical Blood Cell Center </content>0.0 /100<content styleCode="Ital ics"> (0 /100)</content> Erythrocyte 11.5-14. <content [facility] distribution 5 styleCode="[facility]old [place] width [Ratio] by ">Red Cell Medical Automated count Distribution Center Width </content>12.4 %<content styleCode="Ital ics"> (11.5-14.5 %)</content> Platelet mean 8.0-11.0 <content [facility] volume [Entitic styleCode="[facility] [place] volume] in Blood ">Mean Platelet Medical by Automated Volume Center count </content>9.9 FL<content styleCode="Ital ics"> (8.0-11.0 FL)</content> Platelets 130-400 <content Saint [#/volume] in styleCode="[facility] [place] Blood by ">Platelet Medical Automated count Count Center </content>269 KCUMM<content styleCode="Ital ics"> (130-400 KCUMM)</content > UNK 0.0 <content Saint styleCode="[facility] ">Nucleated Red Medical Blood Cell Center Count </content>0.00 KCUMM<content styleCode="Ital ics"> (0.0 KCUMM)</content > ID Date Data Source GFR(Creatinine).[id number] 05/15/2019 05:54:00 PM EST [facility] 0-0500 Name Value Range Interpretation Code Description Data Ivone rce(s) Supporting Document(s ) UNK > 60 <content [facility] styleCode="Bold"> Medical Cent er EGFR </content>117 GFR<content styleCode="Italic s"> (> 60 GFR)</content> ID Date Data Source [id number] 05/15/2019 05:54:00 PM EST Deju[facility] Name Value Range Interpretation Code Description Data Ivone rce(s) Supporting Document(s ) UNK <content [facility] styleCode="Bold" Medical Cente r >Blood Type </content>GROUP O (Reference Range: not available)
UNK NEGATIVE <content [facility] styleCode="Bold" Medical Cente r >Antibody Screen </content>NEGATI VE <content styleCode="Itali cs"> (NEGATIVE )</content> UNK <content [facility] styleCode="Bold" Medical Cente r >RH Type </content>POSITI VE (Reference Range: not available)
ID Date Data Source [id number] 05/15/2019 05:54:00 PM EST [facility] Name Value Range Interpretation Description Data Sup porting Code Source(s) Document(s ) Potassium 3.5-5.3 <content Saint [Moles/volume] styleCode="Lety [place] in Serum or d">Potassium Medical Plasma </content>3.8 Center MEQ/L<content styleCode="Laurie lics"> (3.5-5.3 MEQ/L)</conten t> Chloride 98-107 <content [facility] [Moles/volume] styleCode="[place]y [place] in Serum or d">Chloride Medical Plasma </content>104 Center MEQ/L<content styleCode="Laurie lics"> (98-107 MEQ/L)</conten t> Sodium 137-145 <content [facility] [Moles/volume] styleCode="[place] in Serum or d">Sodium Medical Plasma </content>138 Center MEQ/L<content styleCode="Laurie lics"> (137-145 MEQ/L)</conten t> Glucose 74-106 <content [facility] [Mass/volume] styleCode="[place] in Serum or d">Glucose Medical Plasma </content>102 Center MG/DL<content styleCode="Laurie lics"> (74-106 MG/DL)</conten t> Creatinine 0.5-1.3 <content [facility] [Mass/volume] styleCode="Lety Gonzalezs in Serum or d">Creatinine Medical Plasma </content>0.6 Center MG/DL<content styleCode="Laurie lics"> (0.5-1.3 MG/DL)</conten t> UNK 7-17 <content [facility] styleCode="[facility]y [place] d">BUN Medical </content>11 Center MG/DL<content styleCode="Laurie lics"> (7-17 MG/DL)</conten t> Carbon 22-30 <content [facility] dioxide, total styleCode="Lety Gonzalezs [Moles/volume] d">Carbon Medical in Serum or Dioxide Center Plasma </content>22 MEQ/L<content styleCode="Laurie lics"> (22-30 MEQ/L)</conten t> Calcium 8.4-10.2 <content [facility] [Mass/volume] styleCode="Lety Gonzalezs in Serum or d">Calcium Medical Plasma </content>9.3 Center MG/DL<content styleCode="Laurie lics"> (8.4-10.2 MG/DL)</conten t> UNK > 60 <content Saint styleCode="Lety Gonzalezs d">EGFR Medical </content>117 Center GFR<content styleCode="Laurie lics"> (> 60 GFR)</content> ID Date Data Source [id number] 05/15/2019 05:43:00 [facility] Name Value Range Interpretation Description Data Sup porting Code Source(s) Document(s ) UNK NEGATIVE <content [facility] styleCode="Lety Gonzalezs d">Urine Medical Bilirubin Center </content>NEGA TIVE <content styleCode="Laurie lics"> (NEGATIVE )</content> UNK CLEAR <content [facility] styleCode="[facility]y [place] d">Urine Medical Clarity Center </content>FELICIANO R <content styleCode="Laurie lics"> (CLEAR )</content> Color of Urine YELLOW <content Saint styleCode="Lety Gonzalezs d">Color, Medical Urine Center </content>YELL OW <content styleCode="Laurie lics"> (YELLOW )</content> Glucose NEGATIVE <content [facility] [Mass/volume] styleCode="Lety Gonzalezs in Urine by d">Urine Medical Test strip Glucose Center </content>NEGA TIVE MG/DL<content styleCode="Laurie lics"> (NEGATIVE MG/DL)</conten t> Hemoglobin NEGATIVE <content [facility] [Presence] in styleCode="Lety Gonzalezs Urine by Test d">Urine Blood Medical strip </content>LARG Center E <content styleCode="Laurie lics"> (NEGATIVE )</content> Ketones NEGATIVE <content [facility] [Mass/volume] styleCode="Lety Gonzalezs in Urine by d">Urine Medical Test strip Ketone Center </content>NEGA TIVE MG/DL<content styleCode="Laurie lics"> (NEGATIVE MG/DL)</conten t> Specific 1.015-1.02 <content [facility] gravity of 5 styleCode="Lety Gonzalezs Urine by Test d">Urine Medical strip Specific Center [place] </content>1.02 5 <content styleCode="Laurie lics"> (1.015-1.025 )</content> pH of Urine by 4.5-8.0 <content [facility] Test strip styleCode="Lety [place] d">Urine pH Medical </content>5.5 Center <content styleCode="Laurie lics"> (4.5-8.0 )</content> Protein NEGATIVE <content Saint [Mass/volume] styleCode="[facility]y [place] in Urine by d">Urine Medical Test strip Protein Center </content>TRAC E MG/DL<content styleCode="Laurie lics"> (NEGATIVE MG/DL)</conten t> Nitrite NEGATIVE <content [facility] [Presence] in styleCode="Lety Gonzalezs Urine by Test d">Urine Medical strip Nitrite Center </content>NEGA TIVE <content styleCode="Laurie lics"> (NEGATIVE )</content> Leukocyte NEGATIVE <content [facility] esterase styleCode="Lety Gonzalezs [Presence] in d">Urine Medical Urine by Test Leukocyte Center strip </content>SMAL L <content styleCode="Laurie lics"> (NEGATIVE )</content> Urobilinogen 0.2-1.0 <content [facility] [Units/volume] styleCode="[place]y [place] in Urine by d">Urine Medical Test strip Urobilinogen Center </content>0.2 MG/DL<content styleCode="Laurie lics"> (0.2-1.0 MG/DL)</conten t> UNK NONE SEEN <content Saint styleCode="[facility]y [place] d">Epithelial Medical Cell Center </content>10 - 20 HPF<content styleCode="Laurie lics"> (NONE SEEN HPF)</content> UNK 0-3 <content Saint styleCode="[facility]y [place] d">Urine White Medical Blood Cell Center </content>10 - 20 HPF<content styleCode="Laurie lics"> (0-3 HPF)</content> UNK NONE SEEN <content Saint styleCode="[facility]y [place] d">Urine Mucus Medical </content>MODE Center RATE HPF<content styleCode="Laurie lics"> (NONE SEEN HPF)</content> UNK 0-3 <content Saint styleCode="[facility]y [place] d">Urine Red Medical Blood Cell Center </content>20 - 50 HPF<content styleCode="Laurie lics"> (0-3 HPF)</content> Procedure Social History Code Duration Value Status Description Data Source(s ) Smoking 05/15/2019 Denies Ever completed Denies Ever Smoked [facility] 05:39:00 PM EST Smoked Medical C enter Smoking 05/15/2019 Denies Ever completed Denies Ever Smoked [facility] 04:38:00 PM EST Smoked Medical C enter Smoking 05/15/2019 Denies Ever completed Denies Ever Smoked [facility] 04:23:00 PM EST Smoked Medical C enter Vital Signs ID Date Data Source UNK Name Value Range Interpretation Code Description Data Source(s) Body temperature 37.682629 37.237727 Марина [facility] Respiratory rate 18 /min 18 /min [facility] Oxygen saturation 98 % 98 % [facility] in Arterial blood [facility] Center by Pulse oximetry Heart rate 82 /min 82 /min [facility] Diastolic blood 72 mm[Hg] 72 mm[Hg] [facility] pressure Medical Center Systolic blood 110 mm[Hg] 110 mm[Hg] [facility] pressure Medical Center Body weight 82.339699 kg 82.569429 kg [facility] Measured Medical Center Body temperature 36.482939 36.441551 Марина [facility] Respiratory rate 18 /min 18 /min [facility] Heart rate 87 /min 87 /min [facility] Body height 154.415973 154.128985 cm [facility] cm Medical Center Diastolic blood 70 mm[Hg] 70 mm[Hg] [facility] pressure Medical Center Systolic blood 117 mm[Hg] 117 mm[Hg] [facility] pressure Medical Center Body mass index 34.1 kg/m2 34.1 kg/m2 [facility] (BMI) [Ratio] Medical [address]
[2020-03-03 13:49] LABS: BASO % 0.7 % (0-2.0); HEMOGLOBIN 13.7 GM/dL (10.7-15.3); LYMPH % 34.5 % (8-40); MCH 32.1 pg (25.7-33.7); MCHC 33.3 g/dl (32.0-36.0); MEAN CELL VOLUME 96.4 fl (80-96); NEUT % 55.8 % (42.8-82.8); PLATELET COUNT 296 K/MM3 (134-434); RBC 4.25 M/mm3 (3.60-5.2); RDW 13.6 % (11.6-15.6); WHITE BLOOD COUNT 6.8 K/mm3 (4.0-10.0)
[2020-03-03 14:10] LABS: CHLORIDE 107 mmol/L (98-107); SODIUM 140 mmol/L (136-145)
[2020-03-03 14:12] LABS: CALCIUM 9.5 mg/dL (8.5-10.1)
[2020-03-03 14:13] LABS: ALBUMIN 3.8 g/dl (3.4-5.0); ANION GAP 7 MMOL/L (8-16); BLOOD UREA NITROGEN 8.2 mg/dL (7-18); CO2 26 mmol/L (21-32); GLUCOSE,RANDOM 123 mg/dL (74-106)
[2020-03-03 14:16] LABS: CREATININE 0.7 mg/dL (0.55-1.3); SGOT/AST 11 U/L (15-37); SGPT/ALT 21 U/L (13-61)
[2020-03-03 14:17] LABS: BILIRUBIN,TOTAL 0.3 mg/dL (0.2-1); TOT PROT 7.8 g/dl (6.4-8.2)
[2020-03-03 14:19] LABS: ALK PHOS 86 U/L (45-117)
[2020-03-03 14:21] LABS: N-TERMINAL BNP 28.7 pg/ml (5-125)
--- NOTE | 2020-03-03 14:53 | PDOC ---
History of Present Illness - General Chief Complaint: Chest Pain Stated Complaint: CHEST DISCOMFORT Time Seen by Provider: 03/03/20 13:06 History Source: Patient Exam Limitations: No Limitations Past History - Travel History Traveled outside of the country in the last 30 days: No Close contact w/someone who was outside of country & ill: No - Medical History Allergies/Adverse Reactions: Allergies Allergy/AdvReac Type Severity Reaction Status Date / Time No Known Allergies Allergy Verified 01/31/17 18:22 Home Medications: Ambulatory Orders Docusate Sodium [Colace -] 100 mg PO TID #90 capsule 02/01/17 Oxycodone HCl/Acetaminophen [Percocet 5-325 mg Tablet] 1 tab PO TID PRN #9 tablet MDD 3 tab 02/02/17 Cephalexin [Keflex] 500 mg PO BID #14 capsule 08/01/19 Anemia: No Asthma: No Cancer: No Cardiac Disorders: No CVA: No COPD: No CHF: No Dementia: No Diabetes: No GI Disorders: No Disorders: No HTN: No Hypercholesterolemia: No Liver Disease: No Seizures: No Thyroid Disease: No - Surgical History Abdominal Surgery: No Appendectomy: No Cardiac Surgery: No Cholecystectomy: No Lung Surgery: No Neurologic Surgery: No Orthopedic Surgery: No - Reproductive History Is Patient Now?: No - Immunization History Immunization Up to Date: No - Psycho-Social/Smoking History Smoking History: Never smoked Have you smoked in the past 12 months: No Information on smoking cessation initiated: No - Substance Abuse Hx (Audit-C & DAST Scrn) How often the patient has a drink containing alcohol: Never Score: In Men: 4 or > Positive; In Women: 3 or > Positive: 0 Screen Result (Pos requires Nsg. Audit-10AR): Negative In the last yr the pt used illegal drug/Rx for NonMed reason: No Score: Yes response is considered Positive: 0 Screen Result (Positive result requires Nsg. DAST-10): Negative Review of Systems - Review of Systems Able to Perform ROS?: Yes Comments:: 03/03/20 14:42 CONSTITUTIONAL: Absent: fever, chills, diaphoresis, generalized weakness, malaise, loss of appetite HEENT: Absent: rhinorrhea, nasal congestion, throat pain, throat swelling, difficulty swallowing, mouth swelling, ear pain, eye pain, visual Changes CARDIOVASCULAR: Present: chest pain Absent: loss of consciousness, palpitations, irregular heart rate, peripheral edema RESPIRATORY: Present: dyspnea on exertion Absent: cough, shortness of breath, dyspnea with exertion, orthopnea, wheezing, stridor, hemoptysis GASTROINTESTINAL: Absent: abdominal pain, abdominal distension, nausea, vomiting, diarrhea, constipation, melena, hematochezia GENITOURINARY: Absent: dysuria, frequency, urgency, hesitancy, hematuria, flank pain, genital pain MUSCULOSKELETAL: Absent: myalgia, arthralgia, joint swelling SKIN: Absent: rash, itching, pallor HEMATOLOGIC/IMMUNOLOGIC: Absent: easy bleeding, easy bruising, lymphadenopathy, frequent infections ENDOCRINE: Absent: unexplained weight gain, unexplained weight loss, heat intolerance, cold intolerance NEUROLOGIC: Absent: headache, focal weakness or paresthesias, dizziness, unsteady gait, seizure, mental status changes, bladder or bowel incontinence PSYCHIATRIC: Absent: anxiety, depression, suicidal or homicidal ideation, hallucinations. Is the patient limited Mexican proficient: No *Physical Exam - Vital Signs Last Vital Signs Temp Pulse Resp BP Pulse Ox 98.2 F 72 16 143/74 100 03/03/20 13:05 03/03/20 13:05 03/03/20 13:05 03/03/20 13:05 03/03/20 13:05 - Physical Exam 03/03/20 15:03 GENERAL: Well developed, well nourished. Awake and alert. No acute distress. HEENT: Normocephalic, atraumatic. PERRLA, EOMI. No conjunctival pallor. Sclera are non- icteric. Moist mucous membranes. NECK: Supple. Full ROM. No JVD. No lymphadenopathy. CARDIOVASCULAR: Regular rate and rhythm. No murmurs, rubs, or gallops. Distal pulses are 2+ and symmetric. PULMONARY: No evidence of respiratory distress. Lungs clear to auscultation bilaterally. No wheezing, rales or rhonchi. ABDOMINAL: Soft. Non-tender. Non-distended. No rebound or guarding. No organomegaly. Normoactive bowel sounds. MUSCULOSKELETAL Normal range of motion at all joints. No bony deformities or tenderness. No CVA tenderness. EXTREMITIES: No cyanosis. No clubbing. No edema. No calf tenderness. SKIN: Warm and dry. Normal capillary refill. No rashes. No jaundice. NEUROLOGICAL: Alert, awake, appropriate. Cranial nerves 2-12 intact. No deficits to light touch and temperature in face, upper extremities and lower extremities. No motor deficits in the in face, upper extremities and lower extremities. Normoreflexic in the upper and lower extremities. Normal speech. Toes are down-going bilaterally. Gait is normal without ataxia. PSYCHIATRIC: Cooperative. Good eye contact. Appropriate mood and affect. ED Treatment Course - LABORATORY CBC & Chemistry Diagram: 03/03/20 13:30 03/03/20 13:30 - ADDITIONAL ORDERS Additional order review: Laboratory Results 03/03/20 03/03/20 03/03/20 13:50 13:30 13:30 Sodium 140 Potassium 4.0 Chloride 107 Carbon Dioxide 26 Anion Gap 7 L BUN 8.2 Creatinine 0.7 Est GFR (CKD-EPI)AfAm 123.86 Est GFR (CKD-EPI)NonAf 106.87 Random Glucose 123 H Calcium 9.5 Total Bilirubin 0.3 AST 11 L ALT 21 Alkaline Phosphatase 86 Troponin I < 0.02 B-Natriuretic Peptide 28.7 Total Protein 7.8 Albumin 3.8 Beta HCG, Quant < 1.0 Urine HCG, Qual Negative 03/03/20 13:30 RBC 4.25 MCV 96.4 H MCHC 33.3 RDW 13.6 MPV 8.0 Neutrophils % 55.8 Lymphocytes % 34.5 D Monocytes % 6.0 Eosinophils % 3.0 Basophils % 0.7 Medical Decision Making - Medical Decision Making 03/03/20 15:06 The patient is a 44-year-old female with no past medical history, presents to the emergency department for chest pain. She states that the pain has been intermittent over the past 4 days. She notes it is like a sharp pain in the middle of her chest. She states that it is worse when she takes a deep breath. She also admits to intermittent dizziness. She states she also has some associated shortness of breath with exertion. She denies difficulty breathing at rest, nausea, vomiting, left-sided arm pain/numbness. A/P: Chest pain On exam patient has a regular rate and rhythm, S1-S2 present no murmurs rubs or gallops. Lungs are clear to auscultation bilateral without wheezes rales or rhonchi. Differential diagnosis includes but is not limited to ACS, pneumonia, Covid, reflux, new onset heart failure Basic labs, EKG obtained. Troponin within normal limits. No electrolyte abnormalities. WBC within normal limits. EKG: Rate 69 bpm, normal intervals and axis. No acute ST-T wave changes. Patient with a otherwise normal work-up. Low risk chest pain, atypical chest pain. Advised patient to follow-up with cardiology within 1 week for further management and evaluation of her symptoms. Strict return precautions given. I discussed the physical exam findings, ancillary test results and final diagnoses with the patient. I answered all of the patient's questions. The patient was satisfied with the care received and felt comfortable with the discharge plan and treatment plan. The Patient agrees to follow up with the primary care physician/specialist within 24-72 hours. Return precautions were given. Discharge - Discharge Information Problems reviewed: Yes Clinical Impression/Diagnosis: Chest pain Qualifiers: Chest pain type: unspecified Qualified Code(s): R07.9 - Chest pain, unspecified Condition: Stable Disposition: HOME - Admission No - Follow up/Referral Referrals: Claudio Aranda MD [Primary Care Provider] - - Patient Discharge Instructions Patient Printed Discharge Instructions: DI for Atypical Chest Pain Additional Instructions: You were seen for your chest pain today. Your EKG, lab work and x-ray were all normal today. You may take Tylenol 650 mg every 6 hours as needed for pain. Please follow-up with cardiology within the week. A referral has been provided to you. Your evaluation is not complete until you have followed up with a fullerette. You will receive the results of your Covid test within the next 24 to 48 hours via phone call. Return to the ER for worsening chest pain, difficulty breathing, fever, shortness of breath or if you have any changes in your symptoms. Hoy te vieron por tu dolor de pecho. Garcia electrocardiograma, anlisis de laboratorio y radiografas fueron normales hoy. Puede adrianne Tylenol 650 mg cada 6 horas segn sea necesario para el dolor. Christa un seguimiento con cardiologa dentro de la semana. Se [place] proporcionado luli remisin. Garcia evaluacin no estar completa hasta que haya realizado un seguimiento con un cardilogo. Recibir los resultados de garcia prueba Covid dentro de las prximas 24 a 48 horas a travs de luli llamada telefnica. Regrese a la ana de emergencias si el dolor en el pecho empeora, la dificultad para respirar, la fiebre, la falta de aire o si tiene algn cambio en joshua sntomas. - Post Discharge Activity
--- NOTE | 2020-03-03 17:41 | EKG ---
Test Reason : Blood Pressure : / mmHG Vent. Rate : 070 BPM Atrial Rate : 070 BPM P-R Int : 148 ms QRS Dur : 082 ms QT Int : 374 ms P-R-T Axes : 048 044 013 degrees QTc Int : 403 ms NORMAL SINUS RHYTHM WITH SINUS ARRHYTHMIA NONSPECIFIC ST ABNORMALITY ABNORMAL ECG Confirmed by MD JL, ELEAZAR ([id number]) on 03/03/2020 5:40:52 PM Referred By: Confirmed By:ELEAZAR PARIKH MD
--- NOTE | 2020-03-08 11:34 | EKG ---
Test Reason : Blood Pressure : / mmHG Vent. Rate : 069 BPM Atrial Rate : 069 BPM P-R Int : 142 ms QRS Dur : 080 ms QT Int : 394 ms P-R-T Axes : 056 040 015 degrees QTc Int : 422 ms NORMAL SINUS RHYTHM NORMAL ECG WHEN COMPARED WITH ECG OF 01-AUG-2019 10:05, T WAVE VARIATION Confirmed by JENNIFER NGUYEN MD ([id number]) on 03/08/2020 11:34:20 AM Referred By: Confirmed By:JENNIFER NGUYEN MD
== END 2020-03-03 15:50 | disposition home or self-care (01) ==
LOC: JER 13:00
DX: R07.9 Chest pain, unspecified (principal)
CPT/HCPCS: 36415; 71046-TC-FY; 80053; 83880; 84484; 84702; 84703; 85025; 93005; 93010; 99284-25; C9803; U0003

== ENCOUNTER 2020-12-26 12:25 | Emergency (ER) | payer OTHER ==
[2020-12-26 12:51] VITALS: BP 122/80; PULSE 75; TEMP 98; BMI 34.5
[2020-12-26] MEDS ORDERED: ONDANSETRON *ODT* 4 MG TABLET SL ONE (13:26)
[2020-12-26] MEDS ORDERED: KETOROLAC TROMETHAMINE 30 MG/1 ML VIAL IM ONE (13:26)
[2020-12-26] MEDS ORDERED: ONDANSETRON *ODT* 4 MG TABLET ONE (13:31)
[2020-12-26] MEDS ORDERED: KETOROLAC TROMETHAMINE 30 MG/1 ML VIAL ONE (13:31)
[2020-12-26] MEDS ORDERED: TETRACAINE 0.5% OPHTH SOLN 2 ML BOTTLE ONE (14:16)
[2020-12-26] MEDS ORDERED: FLUORESCEIN NA 1 EA STRIP ONE (14:16)
== END 2020-12-26 14:56 | disposition home or self-care (01) ==
LOC: JERFT 12:25
PROC: 3E0233Z Introduction of Anti-inflammatory into Muscle, Percutaneous Approach (ICD-10-PCS; principal; 2020-12-26)
DX: G43.909 Migraine, unspecified, not intractable, without status migrainosus (principal)
CPT/HCPCS: 99284-25; Q0162

== ENCOUNTER 2021-10-25 07:18 | Emergency (ER) | payer OTHER ==
[2021-10-25 07:32] VITALS: BP 118/82; PULSE 71; TEMP 98.5; BMI 32.9
[2021-10-25] MEDS ORDERED: KETOROLAC TROMETHAMINE 30 MG/1 ML VIAL IM ONE (08:13)
[2021-10-25] MEDS ORDERED: KETOROLAC TROMETHAMINE 30 MG/1 ML VIAL ONE (08:15)
== END 2021-10-25 08:59 | disposition home or self-care (01) ==
LOC: JERFT 07:18 → JER 07:18 → JERFT 08:59
PROC: 3E0233Z Introduction of Anti-inflammatory into Muscle, Percutaneous Approach (ICD-10-PCS; principal; 2021-10-25)
DX: G44.229 Chronic tension-type headache, not intractable (principal)
CPT/HCPCS: 99284-25

== ENCOUNTER 2023-01-17 10:20 | Emergency (ER) | payer OTHER ==
[2023-01-17 10:33] VITALS: BP 119/84; PULSE 96; RESP 18; TEMP 99.2; BMI 31.1
== END 2023-01-17 12:09 | disposition home or self-care (01) ==
LOC: JERFT 10:20
DX: R05.9 Cough, unspecified (principal); R09.81 Nasal congestion; U07.1 COVID-19; J06.9 Acute upper respiratory infection, unspecified
CPT/HCPCS: 0241U-QW; 99283-25

== ENCOUNTER 2023-06-18 19:38 | Observation (INO) | payer OTHER ==
[2023-06-19] MEDS ORDERED: METOCLOPRAMIDE HCL INJECTION 10 MG/2 ML VIAL ONE (00:54)
[2023-06-19] MEDS ORDERED: ACETAMINOPHEN INJECTION 100 ML IVPB ONE (00:54)
[2023-06-19] MEDS: METOCLOPRAMIDE HCL INJECTION 10 MG/2 ML VIAL IVPB ONE (01:03)
[2023-06-19] MEDS: SODIUM CHLORIDE 0.9% 500 ML INFUS.BAG IV ONE (01:03)
[2023-06-19 01:04] LABS: BASO % 0.5 % (0-2.0); HEMATOCRIT 42.9 % (32.4-45.2); HEMOGLOBIN 14.6 GM/dL (10.7-15.3); LYMPH % 29.4 % (8-40); MCH 33.4 pg (25.7-33.7); MEAN CELL VOLUME 98.3 fl (80-96); MEAN PLT VOLUME 8.4 fl (7.5-11.1); MONO % 6.2 % (3.8-10.2); NEUT % 62.9 % (42.8-82.8); PLATELET COUNT 275 10^3/uL (134-434); RBC 4.36 M/mm3 (3.60-5.2); RDW 13.4 % (11.6-15.6); WHITE BLOOD COUNT 9.5 K/mm3 (4.0-10.0)
[2023-06-19] MEDS: ACETAMINOPHEN 1000 MG/100 ML BAG IVPB ONE (01:08)
[2023-06-19 01:11] LABS: INR 1.1 (0.83-1.09); PROTHROMBIN TIME (PATIENT) 12.7 SEC (9.7-13.0)
[2023-06-19 01:14] LABS: ACTIVATED PTT 28.3 SECONDS (25.2-36.5)
[2023-06-19 01:26] LABS: ALBUMIN 3.7 g/dl (3.4-5.0); BLOOD UREA NITROGEN 13.5 mg/dL (7-18)
[2023-06-19 01:29] LABS: CREATININE 0.8 mg/dL (0.55-1.3)
[2023-06-19 01:31] LABS: BILIRUBIN,TOTAL 0.3 mg/dL (0.2-1); TOT PROT 7.7 g/dl (6.4-8.2)
[2023-06-19] MEDS ORDERED: DOCUSATE SODIUM 100 MG CAPSULE (FP) PO PRN (03:17)
[2023-06-19] MEDS ORDERED: ACETAMINOPHEN 1000 MG/100 ML BAG IVPB PRN (07:00)
[2023-06-19 08:05] VITALS: RESP 18
[2023-06-19 13:16] VITALS: BMI 32.0
[2023-06-19] MEDS: ASPIRIN COATED 81 MG TABLET.EC PO SCH (14:27)
[2023-06-19] MEDS: ENOXAPARIN NA (PORCINE) 40 MG/0.4 ML DISP.SYRIN SQ SCH (14:27)
[2023-06-19] MEDS: ATORVASTATIN CA 40 MG TABLET (FP) PO SCH (21:34)
[2023-06-20] MEDS ORDERED: ACETAMINOPHEN 325 MG TABLET (FP) PO PRN (07:00)
[2023-06-20 07:26] LABS: HEMATOCRIT 40.3 % (32.4-45.2); HEMOGLOBIN 13.6 GM/dL (10.7-15.3); MCH 33.2 pg (25.7-33.7); MCHC 33.8 g/dl (32.0-36.0); MEAN CELL VOLUME 98.2 fl (80-96); MEAN PLT VOLUME 8.9 fl (7.5-11.1); PLATELET COUNT 227 10^3/uL (134-434); RDW 13.2 % (11.6-15.6); WHITE BLOOD COUNT 7.3 K/mm3 (4.0-10.0)
[2023-06-20 07:29] LABS: POTASSIUM 3.8 mmol/L (3.5-5.1)
[2023-06-20 07:34] LABS: CALCIUM 8.8 mg/dL (8.5-10.1)
[2023-06-20 07:35] LABS: MAGNESIUM 1.7 mg/dL (1.8-2.4)
[2023-06-20 07:38] LABS: CREATININE 0.7 mg/dL (0.55-1.3)
[2023-06-20] MEDS: ALPRAZolam 0.25 MG TABLET PO ONE (08:39)
[2023-06-20] MEDS: TOPIRAMATE 25 MG TABLET PO SCH (10:46)
[2023-06-20 17:51] VITALS: BP 107/76; PULSE 87; TEMP 99
[2023-06-20] MEDS ORDERED: TOPIRAMATE 25 MG TABLET PO SCH (22:00)
== END 2023-06-20 18:36 | disposition home or self-care (01) ==
LOC: JER 19:38 → JERBED 06-19 03:17 → J4W 06-19 06:16
PROVIDERS: ADMIT Internal Medicine; ATTEND Nurse Practitioner Acute Care
PROC: 3E033NZ Introduction of Analgesics, Hypnotics, Sedatives into Peripheral Vein, Percutaneous Approach (ICD-10-PCS; principal; 2023-06-19)
PROC: 3E023GC Introduction of Other Therapeutic Substance into Muscle, Percutaneous Approach (ICD-10-PCS; 2023-06-19)
PROC: 3E033GC Introduction of Other Therapeutic Substance into Peripheral Vein, Percutaneous Approach (ICD-10-PCS; 2023-06-19)
PROC: 3E0337Z Introduction of Electrolytic and Water Balance Substance into Peripheral Vein, Percutaneous Approach (ICD-10-PCS; 2023-06-19)
DX: G43.109 Migraine with aura, not intractable, without status migrainosus (principal); Z90.49 Acquired absence of other specified parts of digestive tract; Z29.89 Encounter for other specified prophylactic measures
CPT/HCPCS: 36415; 70450-TC; 70551-TC; 80048; 80053; 80061; 83735; 84703; 85025; 85027; 85610; 85730; 86850; 86900; 86901; 93005; 93010; 96372; 96374; 96375; 97116-GP; 97161-GP; 99285-25; G0378; J0131

== ENCOUNTER 2024-08-21 06:23 | Day surgery (SDC) | payer OTHER ==
[2024-08-20 12:21] VITALS: BMI 33.0
[2024-08-21 10:28] VITALS: TEMP 98
[2024-08-21 12:58] VITALS: RESP 18
[2024-08-21 13:01] VITALS: BP 116/76; PULSE 73
== END 2024-08-21 11:14 | disposition home or self-care (01) ==
LOC: JASU-ENDO 06:23
PROVIDERS: ATTEND Internal Medicine Gastroenterology
PROC: 0DJD8ZZ Inspection of Lower Intestinal Tract, Via Natural or Artificial Opening Endoscopic (ICD-10-PCS; principal; 2024-08-21 09:30)
DX: Z12.11 Encounter for screening for malignant neoplasm of colon (principal)
CPT/HCPCS: 81025